=== PATIENT | female | born 1950 | race African-American/Black ===

== ENCOUNTER → 2017-10-04 | Day surgery (SDC) | payer MEDICARE ==
[~2017-10-04] MED LIST: HYDROmorphone 2 MG/ML VIAL IV; IV RINGERS,LACTATED 1000ML 1,000 ML IV; LIDOCAINE 1% PF 2 ML VIAL. ID; LIDOCAINE 2% PF Vial for OR 5 ML VIAL.; MORPHINE SULFATE 2 MG/ML DISP.SYRIN. IV; ONDANSETRON PF 4 MG/2 ML VIAL. IV; PROCHLORPERAZINE 10 MG/2 ML VIAL. IV; PROPOFOL 20 ML IV; fentaNYL PF VIAL 100 MCG/2 ML VIAL IV
[2017-10-04] MEDS: IV RINGERS,LACTATED 1000ML 1,000 ML IV (07:00)
== END | disposition home or self-care (01) ==
LOC: ENDOS 06:50
DX: Z08 Encounter for follow-up examination after completed treatment for malignant neoplasm (principal); K63.5 Polyp of colon; Z85.038 Personal history of other malignant neoplasm of large intestine; K64.0 First degree hemorrhoids; I10 Essential (primary) hypertension; E78.5 Hyperlipidemia, unspecified; Z88.0 Allergy status to penicillin; Z88.8 Allergy status to other drugs, medicaments and biological substances; Z79.82 Long term (current) use of aspirin; Z79.899 Other long term (current) drug therapy; Z87.891 Personal history of nicotine dependence; Z82.3 Family history of stroke; Z83.3 Family history of diabetes mellitus; Z80.41 Family history of malignant neoplasm of ovary; Z82.49 Family history of ischemic heart disease and other diseases of the circulatory system; Z83.79 Family history of other diseases of the digestive system; Z72.89 Other problems related to lifestyle; Z90.710 Acquired absence of both cervix and uterus; Z90.49 Acquired absence of other specified parts of digestive tract
CPT/HCPCS: 45380; 88305; J2704

== ENCOUNTER → 2017-11-08 | Outpatient (CLI) | payer MEDICARE | END | disposition home or self-care (01) | LOC: KCIC MAMMO 11:33 | DX: Z12.31 Encounter for screening mammogram for malignant neoplasm of breast (principal) | CPT/HCPCS: 77063; 77067 ==

== ENCOUNTER → 2017-12-20 | Day surgery (SDC) | payer MEDICARE ==
[~2017-12-20] MED LIST changes: -HYDROmorphone 2 MG/ML VIAL IV; -IV RINGERS,LACTATED 1000ML 1,000 ML IV; +LIDOCAINE 2% 100 MG/5 ML SYRINGE.; -LIDOCAINE 2% PF Vial for OR 5 ML VIAL.; +MIDAZOLAM HCL/PF 2 MG/2 ML VIAL. IV; -MORPHINE SULFATE 2 MG/ML DISP.SYRIN. IV; -ONDANSETRON PF 4 MG/2 ML VIAL. IV; -PROCHLORPERAZINE 10 MG/2 ML VIAL. IV
[2017-12-20] MEDS: IV RINGERS,LACTATED 1000ML 1,000 ML IV (06:54)
== END | disposition home or self-care (01) ==
LOC: ENDOS 06:19
DX: K29.50 Unspecified chronic gastritis without bleeding (principal); I10 Essential (primary) hypertension; E78.00 Pure hypercholesterolemia, unspecified; Z87.891 Personal history of nicotine dependence; Z72.89 Other problems related to lifestyle; Z90.710 Acquired absence of both cervix and uterus; Z83.3 Family history of diabetes mellitus; Z82.49 Family history of ischemic heart disease and other diseases of the circulatory system; Z82.3 Family history of stroke; Z80.41 Family history of malignant neoplasm of ovary; Z80.0 Family history of malignant neoplasm of digestive organs; Z88.0 Allergy status to penicillin; Z88.8 Allergy status to other drugs, medicaments and biological substances
CPT/HCPCS: 43235; J2704

== ENCOUNTER → 2018-01-02 | Outpatient (CLI) | payer MEDICARE ==
[2018-01-02] MEDS: SINCALIDE 1.91 MCG in IV NORMAL SALINE 50ML 30 ML IV (09:40)
== END | disposition home or self-care (01) ==
LOC: US 08:05
DX: K76.0 Fatty (change of) liver, not elsewhere classified (principal); K76.89 Other specified diseases of liver; I10 Essential (primary) hypertension
CPT/HCPCS: 76705; 78226; 96374; 96375; A9537; J2805

== ENCOUNTER → 2018-10-26 | Outpatient (CLI) | payer MEDICARE ==
[2017-12-20 08:04] VITALS: BP 141/71
[~2018-10-26] MED LIST changes: +ASCO10002 PO; +ASPI-630 PO; +CALC600T4 PO; -LIDOCAINE 1% PF 2 ML VIAL. ID; -LIDOCAINE 2% 100 MG/5 ML SYRINGE.; +LISI10TA2 PO; +LOVA20TA2 PO; -MIDAZOLAM HCL/PF 2 MG/2 ML VIAL. IV; +MULT-496 PO; +OMEP40CA5 PO; -PROPOFOL 20 ML IV; +TRIA1TAB3 PO; -fentaNYL PF VIAL 100 MCG/2 ML VIAL IV
--- NOTE | 2018-10-26 16:08 | KCIC ---
MRI right shoulder without contrast dated 10/26/2018. No comparison available. CLINICAL INDICATION: Shoulder pain. TECHNIQUE: Routine multiplanar multisequence MR imaging performed. FINDINGS: Intermediate T2 signal throughout the supraspinatus and infraspinatus portions of the rotator cuff. There is a large full-thickness tear of the supraspinatus footplate that measures approximately 3 cm transverse and 2.7 cm AP. Torn portion of the cuff is retracted to the 12:00 position. There is involvement of the majority of the supraspinatus with involvement of the upper margin of the infraspinatus. There is also probable full-thickness involvement of the upper margin of the subscapularis. Moderate hypertrophic change at the AC joint with undersurface spurring of the acromium. Small amount of subacromial/subdeltoid bursal fluid. Acromium is type II morphology. Intermediate T2 signal of the intra-articular long head biceps tendon. No definite full-thickness tear. The extra-articular portion courses within the bicipital groove. Mild blunting of the posterior superior labrum. No discrete linear defect. There is mild hypertrophic change of the glenohumeral joint with thinning and surface irregularity of the articular cartilage throughout. Small glenohumeral joint effusion. No loose body. Suprascapular and spinoglenoid notches are clear. No significant muscle edema. There is moderate atrophy and volume loss of the supraspinatus and infraspinatus muscles. IMPRESSION: 1. Moderate to severe rotator cuff tendinopathy with large full-thickness tear of the supraspinatus/infraspinatus. Please see above report for details. 2. Moderate AC joint arthropathy with undersurface spurring and small subacromial/subdeltoid bursal effusion. 3. Moderate to severe proximal biceps tendinosis. 4. 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 There is early degenerative fraying of the posterior superior labrum. Electronically signed by: Ken Burton MD (10/26/2018 4:03 PM) [facility]
== END | disposition home or self-care (01) ==
LOC: KCIC MRI 15:02
PROVIDERS: ATTEND Orthopaedic Surgery Hand Surgery
DX: M75.101 Unspecified rotator cuff tear or rupture of right shoulder, not specified as traumatic (principal); M19.011 Primary osteoarthritis, right shoulder; M94.211 Chondromalacia, right shoulder; Z88.0 Allergy status to penicillin; Z88.8 Allergy status to other drugs, medicaments and biological substances
CPT/HCPCS: 73221

== ENCOUNTER → 2018-12-27 | Outpatient (CLI) | payer MEDICARE ==
[2017-12-20 08:04] VITALS: BP 141/71
--- NOTE | 2018-12-27 11:01 | CARD ---
MR#: [id number] Date of Study: 12/27/2018 Ordering Physician: PAN CORONADO, Referring Physician: PAN CORONADO, Tech: Ruth Willett VLAD APPROVED REPORT EXAM: Two-dimensional and M-mode echocardiogram with Doppler and color Doppler. Other Information Quality : AverageHR: 77bpm Rhythm : NSR INDICATION Murmur 2D DIMENSIONS RVDd2.8 (2.9-3.5cm)Left Atrium(2D)3.0 (1.6-4.0cm) IVSd1.5 (0.7-1.1cm)Aortic Root(2D)2.2 (2.0-3.7cm) LVDd3.6 (3.9-5.9cm)LVOT Diameter1.8 (1.8-2.4cm) PWd1.0 (0.7-1.1cm)LVDs1.7 (2.5-4.0cm) FS (%) 54.0 %SV47.7 ml LVEF(%)85.6 (>50%) M-Mode DIMENSIONS Left Atrium(MM)2.99 (2.5-4.0cm)Aortic Root2.73 (2.2-3.7cm) Aortic Valve AoV Peak Ian.147.4cm/sAoV VTI25.9cm AO Peak GR.8.7mmHgLVOT Peak Ian.112.2cm/s AO Mean GR.5mmHgAVA (VMAX)1.96cm2 ZULMA (VTI)2.00cm2 Mitral Valve MV E Zlhfhize98.0cm/sMV DECEL BBXR431mu MV A Idwngjum14.8cm/sE/A Ratio0.9 MV A Qbmlwmwd38zt Pulmonary Valve PV Peak Qgkrqfrz495.0cm/s Tricuspid Valve TR P. Hqonamui888pg/sRAP SFZDRKMB2huTt TR Peak Gr.07msAnRUBM41qnVi Pulmonary Vein S1 Emfpirss49.2cm/sD2 Hdlpoaxm32.3cm/s PVa serzudao15rbzp LEFT VENTRICLE The left ventricle is normal size. There is moderate concentric left ventricular hypertrophy. The lef t ventricle is hyperdynamic. The Ejection Fraction is >70%. There is normal LV segmental wall motion. Transmitral Doppler flow pattern is Grade I-abnormal relaxation pattern. RIGHT VENTRICLE The right ventricle is normal size. There is normal right ventricular wall thickness. The right ventr icular systolic function is normal. ATRIA The left atrium size is normal. The right atrium size is normal. The interatrial septum is intact wit h no evidence for an atrial septal defect or patent foramen ovale as noted on 2-D or Doppler imaging. AORTIC VALVE The aortic valve is calcified but opens well. The aortic valve is trileaflet. Doppler and Color Flow revealed no significant aortic regurgitation. There is no significant aortic valvular stenosis. MITRAL VALVE The mitral valve is thickened but opens well. There is no evidence of mitral valve prolapse. There is no mitral valve stenosis. Doppler and Color-flow revealed trace mitral regurgitation. TRICUSPID VALVE The tricuspid valve is normal in structure and function. Doppler and Color Flow revealed trace tricus pid regurgitation. The PA pressure was estimated at 18 mmHg. There is no tricuspid valve prolapse or vegetation. There is no tricuspid valve stenosis. PULMONIC VALVE The pulmonic valve is not well visualized. GREAT VESSELS The aortic root is normal in size. The ascending aorta is normal in size. The IVC is normal in size a nd collapses >50% with inspiration. PERICARDIAL EFFUSION There is no evidence of significant pericardial effusion. Critical Notification Critical Value: No <Conclusion> The left ventricle is hyperdynamic. The Ejection Fraction is >70%. There is normal LV segmental wall motion. Signed by : Jay Lomas, Electronically Approved : 12/27/2018 11:00:55
== END | disposition home or self-care (01) ==
LOC: ECHO 09:48
PROVIDERS: ATTEND Family Medicine
DX: I51.7 Cardiomegaly (principal)
CPT/HCPCS: 93306

== ENCOUNTER → 2019-01-18 | Outpatient (CLI) | payer MEDICARE ==
[2017-12-20 08:04] VITALS: BP 141/71
--- NOTE | 2019-01-18 10:12 | RAD ---
MR of the left knee HISTORY: Worsening medial left knee pain after a fall 6 months ago. TECHNIQUE: Routine multiplanar sequences are obtained. FINDINGS: Degenerative tear of the medial meniscus. No evidence of a lateral meniscal tear. Anterior and posterior cruciate ligaments are intact. Medial collateral ligament is intact. Iliotibial band unremarkable. Fibular collateral ligament, biceps femoris tendon and popliteus tendon are intact. Minimal signal within the distal patellar tendon, no significant extensor mechanism tendinosis or tear. Moderate joint effusion. Severe chondral thinning at the medial joint compartment. Mild subchondral marrow edema at the medial joint. There is some more focal hypointense proton density signal at the subchondral weightbearing medial femoral condyle, possibly a nondisplaced fracture. Lateral compartment articular cartilage and patellofemoral cartilage is intact. There is also subchondral marrow edema signal at the posterior nonweightbearing medial femoral condyle. Mild edema within the infrapatellar fat particularly superiorly. There is a Gifford's cyst which measures 6 cm. IMPRESSION: 1. Medial meniscal tear. 2. Primary osteoarthritis. 3. Subchondral marrow edema at the weightbearing medial femoral condyle, could be degenerative versus a small incomplete nondisplaced stress fracture. 4. There is a separate focus of subchondral marrow edema at the posterior nonweightbearing medial femoral condyle, nonspecific. Could be a posttraumatic contusion or small nondisplaced incomplete fracture. Electronically signed by: Ken Whitehead MD (01/18/2019 10:09 AM) [facility]
== END | disposition home or self-care (01) ==
LOC: MRI 07:59
PROVIDERS: ATTEND Orthopaedic Surgery
DX: S83.242A Other tear of medial meniscus, current injury, left knee, initial encounter (principal); M17.12 Unilateral primary osteoarthritis, left knee; M25.462 Effusion, left knee; M71.22 Synovial cyst of popliteal space [Baker], left knee; X58.XXXA Exposure to other specified factors, initial encounter; Y93.89 Activity, other specified; Y92.89 Other specified places as the place of occurrence of the external cause; Y99.8 Other external cause status; Z88.0 Allergy status to penicillin; Z88.8 Allergy status to other drugs, medicaments and biological substances
CPT/HCPCS: 73721

== ENCOUNTER → 2021-01-07 | Outpatient (CLI) | payer MEDICARE ==
[2017-12-20 08:04] VITALS: BP 141/71
[~2021-01-07] MED LIST changes: +ASCO100019 PO; -ASCO10002 PO; -CALC600T4 PO; +CALC600T60 PO; +LISI10TA16 PO; -LISI10TA2 PO; +OMEP40CA45 PO; -OMEP40CA5 PO
--- NOTE | 2021-01-07 15:58 | KCIC ---
Bilateral digital screening mammograms with 3-D tomosynthesis: Reason for examination: Routine screening. Comparison is made to previous study dated 11/08/2017. Bilateral mammograms in CC and oblique projections were obtained with 2-D imaging and 3-D tomosynthes is imaging on a Siemens Inspiration unit and reviewed on the workstation. Interpretation was made wit h the benefit of CAD. The skin and nipples show no abnormalities. No abnormal axillary lymph nodes are seen. The breast par enchyma is extremely dense. (Breast density: Category D.) There are no dominant masses, suspicious ca lcifications or architectural distortion. Impression: No evidence of malignancy. Recommend routine screening. Your patient's mammogram demonstrates that she has dense breast tissue (breast density category C or D), which could hide abnormalities, and if she has other risk factors for breast cancer that have bee n identified, she might benefit from supplemental screening tests that may be suggested by you as her ordering physician. Dense breast tissue, in and of itself, is a relatively common condition. Therefo re, this information is not provided to cause undue concern, but rather to raise your awareness and t o promote discussion with your patient regarding the presence of other risk factors, in addition to d ense breast tissue. Your patient's mammography results will be sent to her. BI-RAD Category 1: Negative. "Our facility is accredited by the [employer] Mammography Program." This patient's information has been entered into a reminder system for the patient to be notified wit h the results of her examination and a target date for the next mammogram. Electronically signed by: Lise Allen MD (01/07/2021 3:55 PM) [id number]
== END ==
LOC: KCIC MAMMO 11:03
PROVIDERS: ATTEND Family Medicine
DX: Z12.31 Encounter for screening mammogram for malignant neoplasm of breast (principal)
CPT/HCPCS: 77067

== ENCOUNTER → 2022-01-10 | Outpatient (CLI) | payer MEDICARE ==
[2017-12-20 08:04] VITALS: BP 141/71
[~2022-01-10] MED LIST changes: -OMEP40CA45 PO; +OMEP40CA7 PO
--- NOTE | 2022-01-10 10:24 | KCIC ---
INDICATION: 71 years of age asymptomatic female patient presents for screening mammography. TECHNIQUE: Full field craniocaudal and mediolateral oblique images of both breasts were obtained usi ng digital technique with tomosynthesis and also analyzed with computer-aided detection software. COMPARISON: Prior mammographic imaging dating back to 11/08/2017. BREAST COMPOSITION: Category D: The breasts are extremely dense. This may lower the sensitivity of m ammography. FINDINGS: No suspicious masses, microcalcifications or architectural distortion is present to suggest malignanc y in either breast. The visualized axillae are unremarkable. IMPRESSION: No mammographic evidence of malignancy. RECOMMENDATION: Annual screening mammography is recommended, unless clinically indicated sooner based on symptoms or change in physical exam. BIRADS 1: NEGATIVE This study was interpreted with the benefit of Computerized Aided Detection (CAD). ?Your patient's mammogram demonstrates that she has dense breast tissue (breast density category C or D), which could hide abnormalities, and if she has other risk factors for breast cancer that have be en identified, she might benefit from supplemental screening tests that may be suggested by you as he r ordering physician. Dense breast tissue, in and of itself, is a relatively common condition. Theref ore, this information is not provided to cause undue concern, but rather to raise your awareness and to promote discussion with your patient regarding the presence of other risk factors, in addition to dense breast tissue. Your patient's mammography results will be sent to her. Patient information is entered into the reminder system with a target due date for the next screening mammogram. Mammography is the most sensitive method for finding small breast cancers, but it does not detect the m all and is not a substitute for careful clinical examination. A negative mammogram does not negate a clinically suspicious finding and should not result in delay in biopsying a clinically suspicious a bnormality. "Our facility is accredited by the [employer] Mammography Program." Electronically signed by: Shawn Miramontes DO (01/10/2022 10:22 AM) [id number]
== END ==
LOC: KCIC MAMMO 09:18
PROVIDERS: ATTEND Family Medicine
DX: Z12.31 Encounter for screening mammogram for malignant neoplasm of breast (principal)
CPT/HCPCS: 77063; 77067